=== PATIENT | female | born 1955 | race African-American/Black ===

== ENCOUNTER → 2017-06-02 | Outpatient (CLI) | payer OTHER ==
--- NOTE | 2017-06-02 16:33 | WOMENS IMAGING REPORT ---
EXAM DESCRIPTION: BILAT SCREENING MAMMO W/CAD COMPLETED DATE/TIME: 06/02/2017 8:23 am REASON FOR STUDY: SCREENING MAMMO Z12.31 ENCNTR SCREEN MAMMOGRAM FOR MALIGNANT NEOPLASM OF NAHEED COMPARISON: 2007 TECHNIQUE: Standard craniocaudal and mediolateral oblique views of each breast recorded using digita l acquisition. LIMITATIONS: None. FINDINGS: No masses, calcifications or architectural distortion. No areas of suspicion. Read with the assistance of CAD. .[facility] - R2 Cenova Version 1.3 .[facility] - R2 Cenova Version 1.3 .[facility] - R2 Cenova Version 2.4 .[facility] R2 Cenova Version 2.4 .[facility] - R2 Hospital Education Coordinator Version 9.2 IMPRESSION: NORMAL MAMMOGRAM. BIRADS 1. BREAST DENSITY: b. There are scattered areas of fibroglandular density. BIRAD: 1 NEGATIVE RECOMMENDATION: ROUTINE SCREENING COMMENT: The patient has been notified of the results by letter per SA requirements. Additional no tification policies are in place for contacting patient with suspicious or incomplete findings. Quality ID #[id number]: The [employer] recommends an annual screening mammogram for women aged 40 years or over. This facility utilizes a reminder system to ensure that all patients receive reminder letters, and/or direct phone calls for appointments. This includes reminders for routine scr eening mammograms, diagnostic mammograms, or other Breast Imaging Interventions when appropriate. Th is patient will be placed in the appropriate reminder system. The [employer] (ACR) has developed recommendations for screening MRI of the breast s in certain patient populations, to be used in conjunction with mammography. Breast MRI surveillanc e may be appropriate for women with more than 20% lifetime risk of developing breast cancer as deter mined by genetic testing, significant family history of the disease, or history of mantle radiation f or Hodgkins Disease. ACR Practice Guidelines 2008. TECHNICAL DOCUMENTATION: FINDING NUMBER: (1) ASSESSMENT: (1) JOB ID: [id number] [employer]- All Rights Reserved
== END ==
LOC: WI 07:55
PROVIDERS: ATTEND Internal Medicine
DX: Z12.31 Encounter for screening mammogram for malignant neoplasm of breast (principal)
CPT/HCPCS: 77067; G0202

== ENCOUNTER 2017-10-02 08:04 | Outpatient (CLI) | payer OTHER ==
[~2017-10-02 08:04] MED LIST: FERRIC CARBOXYMALTOSE 750 MG in NORMAL SALINE 250 ML IV PRN
[2017-10-02 08:48] VITALS: BP 118/70
== END 2017-10-02 09:40 | disposition home or self-care (01) ==
LOC: II 08:04 → 5TH 08:06 → II 09:40
PROVIDERS: ATTEND Internal Medicine
PROC: 3E033GC Introduction of Other Therapeutic Substance into Peripheral Vein, Percutaneous Approach (ICD-10-PCS; principal; 2017-10-02)
DX: D50.0 Iron deficiency anemia secondary to blood loss (chronic) (principal); K52.3 Indeterminate colitis
CPT/HCPCS: 96367; J7050; J1439; 96374

== ENCOUNTER 2017-10-09 07:49 | Outpatient (CLI) | payer OTHER ==
[2017-10-09 08:37] VITALS: BP 147/78
== END 2017-10-09 09:01 | disposition home or self-care (01) ==
LOC: II 07:49 → 5TH 07:50 → II 09:01
PROVIDERS: ATTEND Internal Medicine
PROC: 3E033GC Introduction of Other Therapeutic Substance into Peripheral Vein, Percutaneous Approach (ICD-10-PCS; principal; 2017-10-09)
DX: D50.0 Iron deficiency anemia secondary to blood loss (chronic) (principal); K52.3 Indeterminate colitis
CPT/HCPCS: 96365; J7050; J1439

== ENCOUNTER → 2018-11-10 | Outpatient (CLI) | payer OTHER ==
--- NOTE | 2018-11-10 12:54 | WOMENS IMAGING REPORT ---
EXAM DESCRIPTION: 3D SCREENING MAMMO BILAT COMPLETED DATE/TIME: 11/10/2018 8:56 am REASON FOR STUDY: Z12.31 ENCOUNTER FOR SCREENING MAMMOGRAM FOR MALIGNANT NEOPLASM OF BREAST Z12.31 ENCNTR SCREEN MAMMOGRAM FOR MALIGNANT NEOPLASM OF NAHEED COMPARISON: 06/02/2017 and 08/21/2008. TECHNIQUE: Standard craniocaudal and mediolateral oblique views of each breast recorded using digita l acquisition and breast tomosynthesis. LIMITATIONS: None. FINDINGS: No masses, calcifications or architectural distortion. No areas of suspicion. Read with the assistance of CAD. .[facility] - R2 Cenova Version 1.3 .[facility] - R2 Cenova Version 2.1 .[facility] - R2 Cenova Version 2.4 .[facility] [place] - R2 Cenova Version 2.4 .[facility] - R2 Ell Teacher Version 9.2 IMPRESSION: NORMAL MAMMOGRAM. BIRADS 1. BREAST DENSITY: b. There are scattered areas of fibroglandular density. BIRAD: 1 NEGATIVE RECOMMENDATION: ROUTINE SCREENING COMMENT: The patient has been notified of the results by letter per SA requirements. Additional no tification policies are in place for contacting patient with suspicious or incomplete findings. Quality ID #[id number]: The [employer] recommends an annual screening mammogram for women aged 40 years or over. This facility utilizes a reminder system to ensure that all patients receive reminder letters, and/or direct phone calls for appointments. This includes reminders for routine scr eening mammograms, diagnostic mammograms, or other Breast Imaging Interventions when appropriate. Th is patient will be placed in the appropriate reminder system. The [employer] (ACR) has developed recommendations for screening MRI of the breast s in certain patient populations, to be used in conjunction with mammography. Breast MRI surveillanc e may be appropriate for women with more than 20% lifetime risk of developing breast cancer as deter mined by genetic testing, significant family history of the disease, or history of mantle radiation f or Hodgkins Disease. ACR Practice Guidelines 2008. DBT Technology DBT is a type of tomographic mammography. With conventional mammography, overlapping breast tissue ma y make lesions difficult to detect, even with good compression. DBT uses an x-ray tube that rotates a round the breast, taking images at different angles. These images are then combined to create thin sl ices of the breast that the radiologist can view as a 3D reconstruction. The Advanced LEDs unit can perform full-field digital mammograms (2D imaging); or DBT (3D imaging); or both, in a combination mode that quickly performs both the mammogram and the tomosynthesis scan while the breast is still compressed. PQRS 6045F: Fluoroscopic imaging is not utilized for breast tomosynthesis. TECHNICAL DOCUMENTATION: FINDING NUMBER: (1) ASSESSMENT: (1) JOB ID: [id number] [employer]- All Rights Reserved Reading location - IP/workstation name: [email or web address]
== END ==
LOC: WI 08:36
PROVIDERS: ATTEND Internal Medicine
DX: Z12.31 Encounter for screening mammogram for malignant neoplasm of breast (principal)
CPT/HCPCS: 77063; 77067

== ENCOUNTER → 2020-06-08 | Outpatient (CLI) | payer OTHER, MEDICARE ==
--- NOTE | 2020-06-08 11:58 | WOMENS IMAGING REPORT ---
EXAM DESCRIPTION: BONE DENSITY HIP/SPINE IMAGES COMPLETED DATE/TIME: 06/08/2020 10:03 am REASON FOR STUDY: E21.0 PRIMARY HYPERPARATHYROIDISM E21.0 PRIMARY HYPERPARATHYROIDISM Z12.31 ENCNT R SCREEN MAMMOGRAM FOR MALIGNANT NEOPLASM OF NAHEED E83.52 HYPERCALCEMIA COMPARISON: None. TECHNIQUE: Dual-Energy X-ray Absorptiometry (DEXA) of the AP Spine and Hip. LIMITATIONS: None. FINDINGS: LUMBAR SPINE: The bone mineral density (BMD) measured from L1-L4 in the AP projection correlates with a T-score of -2.4 in, which is osteopenic as defined by the World Health Organization. BMD Change vs Baseline: N/A HIP: The bone mineral density (BMD) measured in the left femoral neck at the hip correlates with a T-score of -1.2, which is osteopenic as defined by the World Health Organization. BMD Change vs Baseline: Not applicable 10 year Fracture Risk Assessment: Major Osteoporotic Fracture: 3.2% Hip Fracture: Less than 1% IMPRESSION: 1. LUMBAR SPINE WHO CLASSIFICATION: osteopenic 2. HIP WHO CLASSIFICATION: Osteopenic OVERALL ASSESSMENT: WHO CLASSIFICATION: Osteopenic COMMENT: The World Health Organization defines low BMD as follows: T-score: Normal: At or above -1.0 Osteopenia: Between -1.0 and -2.5 Osteoporosis: At or below -2.5 without fractures Established osteoporosis: At or below -2.5 with fractures In general, you may wish to consider: Diagnosis Treatment Follow-up DEXA Normal BMD Prevention 2-3 years Osteopenia Prevention/Therapy 1-2 years Osteoporosis Therapy Yearly TECHNICAL DOCUMENTATION: JOB ID: [id number] 2010 [employer]- All Rights Reserved Reading location - IP/workstation name: [email or web address]
--- NOTE | 2020-06-08 12:25 | RADIOLOGY REPORT (SQ) ---
EXAM DESCRIPTION: NM PARATHYROID IMAGING IMAGES COMPLETED DATE/TIME: 06/08/2020 12:04 pm REASON FOR STUDY: E21.0 PRIMARY HYPERPARATHYROIDISM E21.0 PRIMARY HYPERPARATHYROIDISM Z12.31 ENCNT R SCREEN MAMMOGRAM FOR MALIGNANT NEOPLASM OF NAHEED E83.52 HYPERCALCEMIA COMPARISON: None. RADIONUCLIDE AND DOSE: 21.9 millicuries Tc-99m Sestamibi. The route of agent administration: Intravenous ADDITIONAL DRUGS AND DOSES: None. TECHNIQUE: Early and delayed images of the neck acquired following radionuclide administration. LIMITATIONS: None. FINDINGS: Thyroid: Normal size. Homogeneous activity. Normal washout. No focal lesions. Parathyroid: On the delayed images, there as focal persistent increased activity of sestamibi over th e right lower pole thyroid region. This could be due to the thyroid or parathyroid adenoma. Other: No other significant findings. IMPRESSION: Persistent increased uptake over the right lower pole thyroid gland. This could indicat e a thyroid or parathyroid adenoma TECHNICAL DOCUMENTATION: JOB ID: [id number] 2010 [employer]- All Rights Reserved Reading location - IP/workstation name: [email or web address]
--- NOTE | 2020-06-08 12:51 | WOMENS IMAGING REPORT ---
EXAM DESCRIPTION: 3D SCREENING MAMMO BILAT IMAGES COMPLETED DATE/TIME: 06/08/2020 10:03 am REASON FOR STUDY: Z12.31 ENCNTR SCREEN MAMMOGRAM FOR MALIGNANT NEOPLASM OF BREAST E21.0 PRIMARY HYP ERPARATHYROIDISM Z12.31 ENCNTR SCREEN MAMMOGRAM FOR MALIGNANT NEOPLASM OF NAHEED E83.52 HYPERCALCEMIA COMPARISON: Multiple since 2007 EXAM PARAMETERS: Views: Standard craniocaudal and mediolateral oblique views of each breast recorded using digital acquisition and breast tomosynthesis. Read with the assistance of CAD. .[facility] - Pipe Tester Version 9.2 LIMITATIONS: None. FINDINGS: No suspicious masses, suspicious calcifications or architectural distortion. No areas of c oncern. IMPRESSION: NEGATIVE MAMMOGRAM. BIRADS 1. BREAST DENSITY: b. There are scattered areas of fibroglandular density. BIRAD: ASSESSMENT: 1 NEGATIVE RECOMMENDATION: ROUTINE SCREENING Please continue yearly bilateral screening mammography/tomosynthesis in May 2021 COMMENT: The patient has been notified of the results by letter per SA requirements. Additional no tification policies are in place for contacting patient with suspicious or incomplete findings. Quality ID #[id number]: The [employer] recommends an annual screening mammogram for women aged 40 years or over. This facility utilizes a reminder system to ensure that all patients receive reminder letters, and/or direct phone calls for appointments. This includes reminders for routine scr eening mammograms, diagnostic mammograms, or other Breast Imaging Interventions when appropriate. Th is patient will be placed in the appropriate reminder system. TECHNICAL DOCUMENTATION: FINDING NUMBER: (1) ASSESSMENT: (1) JOB ID: [id number] 2010 [employer]- All Rights Reserved Reading location - IP/workstation name: [email or web address]
== END ==
LOC: RAD 08:30
PROVIDERS: ATTEND Internal Medicine
DX: Z12.31 Encounter for screening mammogram for malignant neoplasm of breast (principal); E21.0 Primary hyperparathyroidism; M85.88 Other specified disorders of bone density and structure, other site
CPT/HCPCS: 78070; 77063; 77067; 77080; A9500; Q9969

== ENCOUNTER → 2020-06-25 | Outpatient (CLI) | payer OTHER, MEDICARE | LOC: OD 09:34 | PROVIDERS: ATTEND Physician Assistant Surgical | DX: E83.52 Hypercalcemia (principal); E21.3 Hyperparathyroidism, unspecified | CPT/HCPCS: 36415; 82310; 83970 ==

== ENCOUNTER 2020-08-27 07:46 | Day surgery (SDC) | payer MEDICARE, OTHER ==
[2020-08-21 10:57] LABS: HEMATOCRIT 33.2 % (36.0-47.0); HEMOGLOBIN 11.1 g/dL (12.0-15.5); MEAN CORPUSCULAR HEMOGLOBIN 27.8 pg (27.0-33.4); MEAN CORPUSCULAR HGB CONC 33.5 g/dL (32.0-36.0); MEAN CORPUSCULAR VOLUME 83 fl (80-97); PLATELET COUNT 334 10^3/uL (150-450); RED BLOOD COUNT 4.01 10^6/uL (3.72-5.28); RED CELL DISTRIBUTION WIDTH 14.4 % (11.5-14.0)
[2020-08-21 11:16] LABS: ANION GAP 6 (5-19); BLOOD UREA NITROGEN 12 mg/dL (7-20); CALCIUM 10.7 mg/dL (8.4-10.2); CARBON DIOXIDE 26 mmol/L (22-30); CHLORIDE 106 mmol/L (98-107); GLUCOSE 102 mg/dL (75-110); POTASSIUM 4.3 mmol/L (3.6-5.0)
--- NOTE | 2020-08-21 12:23 | EKG REPORT ---
SEVERITY:- BORDERLINE ECG - SINUS RHYTHM BORDERLINE T ABNORMALITIES, ANT-LAT LEADS : Confirmed by: Dennis Contreras MD 21-Aug-2020 12:22:58
[~2020-08-27 07:46] MED LIST changes: +CEFAZOLIN 2 GM/D5W RTU 2 GM/50 ML RTUPB IV PRN; -FERRIC CARBOXYMALTOSE 750 MG in NORMAL SALINE 250 ML IV PRN; +LACTATED RINGERS 1000 ML IV PRN; +LIDOCAINE 0.5% INJ-PF (5 MG/ML) 50 ML SDV SUBCUT PRN
[2020-08-27] MEDS ORDERED: CEFAZOLIN 2 GM/D5W RTU 2 GM/50 ML RTUPB IV ONE (08:00)
[2020-08-27] MEDS ORDERED: ONDANSETRON HCL INJ/PF 4 MG/2 ML SDV ONE (08:18)
[2020-08-27] MEDS ORDERED: MORPHINE SULFATE 10 MG/ML INJ ONE ×2 (08:18→12:26)
[2020-08-27] MEDS ORDERED: MIDAZOLAM 2 MG/2 ML INJ ONE (08:18)
[2020-08-27] MEDS ORDERED: DEXAMETHASONE SOD PHOSPHATE INJ 4 MG/1 ML VIAL ONE (08:18)
[2020-08-27] MEDS ORDERED: FENTANYL CITRATE INJ/PF 100 MCG/2 ML AMPUL ONE (08:18)
[2020-08-27] MEDS ORDERED: PROPOFOL INJ 200 MG/20 ML VIAL IV ONE (08:19)
[2020-08-27] MEDS ORDERED: NEOSTIGMINE METHYLSULFATE 10 MG/10 ML VIAL ONE (09:50)
[2020-08-27] MEDS ORDERED: SUCCINYLCHOLINE CHLORIDE INJ 200 MG/10 ML VIAL ONE (09:50)
[2020-08-27] MEDS ORDERED: GLYCOPYRROLATE 1 MG/5 ML VIAL ONE (09:50)
[2020-08-27] MEDS ORDERED: DIPHENHYDRAMINE HCL 50 MG/ML VIAL IV PRN (10:42)
[2020-08-27] MEDS ORDERED: FENTANYL CITRATE INJ/PF 100 MCG/2 ML AMPUL IV PRN ×3 (10:42)
[2020-08-27] MEDS ORDERED: MORPHINE SULFATE 10 MG/ML INJ IV PRN ×2 (10:42→11:49)
[2020-08-27] MEDS ORDERED: PROMETHAZINE HCL INJ 25 MG/1 ML VIAL IV PRN ×2 (10:42)
[2020-08-27] MEDS ORDERED: MEPERIDINE HCL/PF INJ 25 MG/1 ML DISP.SYRIN IV PRN (10:42)
[2020-08-27] MEDS ORDERED: DEXTROSE 5%-LACTATED RINGERS 1,000 ML IV PRN (11:49)
[2020-08-27] MEDS ORDERED: ONDANSETRON HCL INJ/PF 4 MG/2 ML SDV IV PRN (11:49)
--- NOTE | 2020-08-27 12:01 | Operative Report ---
Nonrecallable Operative Report DATE OF SURGERY: 08/27/20 PREOPERATIVE DIAGNOSIS: Hyperparathyroidism POSTOPERATIVE DIAGNOSIS: Same OPERATION: Parathyroidectomy SURGEON: RICKEY MARCELINO 1ST HVAC REFRIGERATION TECHNICIAN: ALEC MARTINEZ ANESTHESIA: GA TISSUE REMOVED OR ALTERED: Parathyroid tissue and parathyroid adenoma COMPLICATIONS: None ESTIMATED BLOOD LOSS: 10 cc INTRAOPERATIVE FINDINGS: See note PROCEDURE: Patient was brought to the operating awake alert stable condition placed on the operating table supine position induced under general anesthesia intubated. The neck was prepped and draped in usual sterile fashion for the procedure. After appropriate timeout and site verification the procedure commenced. A curvilinear incision was made 2 fingerbreadths above the sternal notch and the skin crease dissection was carried down through subtenons tissue with the knife platysma muscle was divided with Bovie cautery superior and inferior skin flaps were raised. The thyroid was retractor was placed. The midline raphae was divided with Bovie cautery and the strap muscles were retracted laterally first on the right side. We mobilized the thyroid gland out of the bed and identified the recurrent laryngeal nerve exiting the thoracic inlet and traced that underneath the inferior thyroidal artery. At that point we noticed a small amount of parathyroid tissue that was sent for biopsy. Biopsy came back normal parathyroid tissue. As we continued our dissection we m obilized the superior pole with blunt dissection always being careful not to injure the recurrent laryngeal nerve at that point we noticed a very large parathyroid adenoma which was dissected free from the surrounding tissue hemoclipped and removed. It was sent down to pathology. While waiting for the results of pathology explore the left neck similarly I mobilized the sternal thyroid muscle away from the thyroid gland retracted laterally and mobilized the thyroid gland medially identified the recurrent laryngeal nerve as it exited the thoracic inlet and traced it underneath the inferior thyroidal artery once we did that we identified the inferior parathyroid gland which looked mildly enlarged and therefore I sent a small sample that for biopsy we continued our dissection to identify the superior parathyroid gland which was left in situ and untouched. The biopsy of the inferior parathyroid gland on the left side proved to be parathyroid tissue as well as now the results of the large adenoma came back as parathyroid adenoma. We then returned turned the thyroid to its bed hemostasis complete we closed the midline raphae with interrupted 3-0 Vicryl sutures. Close this platysma muscle with interrupted 3-0 Vicryl sutures and closed the skin with intracuticular 4 oh bison Steri-Strips completed the procedure. Sponge and needle counts were correct x2 patient was awakened in the operating extubated transferred recovery in stable condition no complications. RALPH Richey was present for the entire procedure for help with wound retraction and wound closure.
[2020-08-27] MEDS ORDERED: PROMETHAZINE HCL INJ 25 MG/1 ML VIAL ONE (12:02)
[2020-08-27] MEDS: OXYCODONE-ACETAMINOPHEN 5-325 MG TABLET PO PRN ×2 (15:23→21:42)
[2020-08-27] MEDS ORDERED: CALCIUM CARBONATE 600 MG TABLET PO SCH (17:00)
[2020-08-27] MEDS ORDERED: FAMOTIDINE INJ/PF 20 MG/2 ML SDV IV SCH ×2 (22:00)
[2020-08-28] MEDS: OXYCODONE-ACETAMINOPHEN 5-325 MG TABLET PO PRN (06:47)
--- NOTE | 2020-08-28 08:09 | PDOC DISCHARGE SUMMARY ---
General - Admit/Disc Date/PCP Admission Date/Primary Care Provider: 08/27/20 07:46 CRAIG PERES MD Discharge Date: 08/28/20 - Discharge Diagnosis Final Diagnosis: hyperparathroidism - Assessment Summary: This patient was admitted on the day of surgery for an elective neck exploration with parathyroidectomy. She underwent the procedure tolerated well. Postoperatively her calciums remained stable on oral calcium supplementation. The following morning after surgery she was up and around tolerating a regular diet voice was normal calcium levels were stable and she is ready for discharge home. She will be given a follow-up appointment with me 7 to 10 days after discharge and being discharged home on Os-Smione 500 mg p.o. 3 times daily. - Additional Information Resuscitation Status: Full Code Discharge Diet: As Tolerated Referrals: CRAIG PERES MD [Primary Care Provider] - Prescriptions: Calcium Carbonate [Os-Simone 500 mg Tablet (Oyster-Shell)] 500 mg PO TID #90 tab Home Medications: Atorvastatin Calcium [Lipitor 20 Mg Tablet] 20 mg PO QHS 07/01/13 Metformin HCl [Glucophage 1000 mg Tablet] 1,000 mg PO DAILY 07/01/13 Iron Polysaccharide Complex [Poly-Iron] 150 mg PO ASDIR PRN 08/21/20 Losartan/Hydrochlorothiazide [Losartan-Hctz 100-25 mg Tab] 1 each PO ASDIR PRN 08/21/20 Mirabegron [Myrbetriq] 50 mg PO ASDIR PRN 08/21/20 Sitagliptin Phosphate [Januvia 50 mg Tablet] 50 mg PO DAILY 08/21/20 Calcium Carbonate [Os-Simone 500 mg Tablet (Oyster-Shell)] 500 mg PO TID #90 tab 08/28/20 History of Present Illiness History of Present Illness: FABIEN MCCALL is a 65 year old female Physical Exam Vital Signs: Temp Pulse Resp BP Pulse Ox 97.8 F 65 20 112/66 98 08/28/20 04:36 08/28/20 04:36 08/28/20 04:36 08/28/20 04:36 08/28/20 04:36 Intake & Output 08/27/20 08/28/20 08/29/20 06:59 06:59 06:59 Intake Total 1700 Balance 1700 Weight 88.4 kg Results Laboratory Results: WBC 4.0 10^3/uL (4.0-10.5) 08/21/20 09:24 RBC 4.01 10^6/uL (3.72-5.28) 08/21/20 09:24 Hgb 11.1 g/dL (12.0-15.5) L 08/21/20 09:24 Hct 33.2 % (36.0-47.0) L 08/21/20 09:24 MCV 83 fl (80-97) 08/21/20 09:24 MCH 27.8 pg (27.0-33.4) 08/21/20 09:24 MCHC 33.5 g/dL (32.0-36.0) 08/21/20 09:24 RDW 14.4 % (11.5-14.0) H 08/21/20 09:24 Plt Count 334 10^3/uL (150-450) 08/21/20 09:24 Sodium 138.0 mmol/L (137-145) 08/21/20 09:24 Potassium 4.0 mmol/L (3.6-5.0) 08/27/20 08:51 Chloride 106 mmol/L (98-107) 08/21/20 09:24 Carbon Dioxide 26 mmol/L (22-30) 08/21/20 09:24 Anion Gap 6 (5-19) 08/21/20 09:24 BUN 12 mg/dL (7-20) 08/21/20 09:24 Creatinine 0.80 mg/dL (0.52-1.25) 08/21/20 09:24 Est GFR ( Amer) > 60 (>60) 08/21/20 09:24 Est GFR (MDRD) Non-Af > 60 (>60) 08/21/20 09:24 Glucose 114 mg/dL (75-110) H 08/27/20 08:51 Calcium 9.3 mg/dL (8.4-10.2) 08/28/20 06:45 PTH Intact 143.5 pg/mL (10.0-65.0) H 08/27/20 11:10 COVID-19 Source See comment 08/21/20 09:30 COVID-19 (MEGAN) Not Detected (Not Detect) 08/21/20 09:30
[2020-08-28 09:19] VITALS: BP 118/88
== END 2020-08-28 10:35 | disposition home or self-care (01) ==
LOC: INOR 07:46 → ASU 07:46 → UNDOADMIN 07:46 → EDSTATUS 10:00 → 2N 13:57 → INOR 13:57 → UNDODISIN 08-28 10:35 → ASU 08-28 10:35
PROVIDERS: ATTEND Surgery
DX: D35.1 Benign neoplasm of parathyroid gland (principal); E21.3 Hyperparathyroidism, unspecified; Z01.812 Encounter for preprocedural laboratory examination; Z79.899 Other long term (current) drug therapy; Z20.828 Contact with and (suspected) exposure to other viral communicable diseases; Z79.84 Long term (current) use of oral hypoglycemic drugs; E11.9 Type 2 diabetes mellitus without complications; I10 Essential (primary) hypertension; N32.81 Overactive bladder; E78.5 Hyperlipidemia, unspecified; Z85.3 Personal history of malignant neoplasm of breast; Z86.19 Personal history of other infectious and parasitic diseases; M19.90 Unspecified osteoarthritis, unspecified site
CPT/HCPCS: 93005; 36415 ×3; 82310 ×2; 82947; 84132; 85027; 80048; 83970; 88305 ×2; 88331 ×2; 94799; 93010; 60500; U0003; J2250; J1100; J3010; J2270; J2710; A9270 ×2; J2550; J0330; J2405; J2704; S0028; J0690; J3490; C9803; 320; 87635

== ENCOUNTER → 2020-09-05 | Outpatient (CLI) | payer MEDICARE, OTHER | LOC: OD 12:16 | PROVIDERS: ATTEND Surgery | DX: E21.3 Hyperparathyroidism, unspecified (principal) | CPT/HCPCS: 36415; 82310 ==